=== PATIENT | female | born 1965 | race African-American/Black ===

== ENCOUNTER 2018-06-20 00:18 | Inpatient (IN) | payer BC, OTHER, SELFPAY ==
[2018-06-20 01:14] LABS: #Basophils 0.1 thou/uL (0.0-0.2); #Eosinphils 0.1 thou/uL (0.0-0.7); #Lymphocytes 2.9 thou/uL (1.20-3.40); %Basophils 1.2 % (0.0-1.0); %Eosinophils 0.6 % (0.0-10.0); %Lymphocytes 24.3 % (21.0-51.0); %Monocytes 7.9 % (0.0-10.0); Hemoglobin 14.4 g/dL (12.0-16.0); Mean Corpuscular HGB CONC 32.3 g/dL (32.0-36.0); Mean Corpuscular Hemoglobin 31.1 pg (27.0-31.0); Mean Platelet Volume 8.6 fL (7.4-10.4); Platelet Count 338 thou/uL (130-400); RBC Distribution Width 12.5 % (11.5-14.5); Red Blood Cell (RBC) Count 4.63 mill/uL (4.20-5.40); White Blood Cell (WBC) Count 12.1 thou/uL (4.8-10.8)
[2018-06-20 01:29] LABS: ALT (SGPT) 19 U/L (8-55); AST (SGOT) 18 U/L (5-34); Albumin 4.7 g/dL (3.5-5.0); Alkaline Phosphatase 89 U/L (40-150); Anion Gap 16 mmol/L (10-20); BUN (Urea Nitrogen) 14 mg/dL (9.8-20.1); Bilirubin, Total 0.3 mg/dL (0.2-1.2); Calc. Creatinine Clearance 0 mL/min (70-130); Calcium 10.2 mg/dL (7.8-10.44); Carbon Dioxide 25 mmol/L (22-29); Chloride 105 mmol/L (98-107); Estimated GFR-MDRD 87; Globulin 3.6 g/dL (2.4-3.5); Glucose 119 mg/dL (70-105); Lipase 23 U/L (8-78); Potassium 3.6 mmol/L (3.5-5.1); Protein, Total 8.3 g/dL (6.0-8.3); Sodium 142 mmol/L (136-145)
[2018-06-20 01:54] LABS: Bilirubin Negative (Negative); Blood, Urine Trace (Negative); Glucose, Urine (Dipstick) Negative (Negative); Leukocyte Negative (Negative); Nitrite Negative (Negative); Protein, Urine (Dipstick) Trace mg/dL (Neg-Trace); Urobilinogen 0.2 mg/dL (0.2-1.0)
[2018-06-20 01:59] LABS: Clarity Clear (Clear)
[2018-06-20 02:01] LABS: Bacteria/HPF None Seen HPF (None Seen); Hyaline Casts/LPF NONE SEEN LPF (0-3 Hyaline); RBC/HPF 0-3 HPF (0-3); Squamous Epithelial 0-3 HPF (0-3)
[2018-06-20] MEDS ORDERED: Ondansetron PF 4 MG/2 ML Vial ONE (02:39)
[2018-06-20] MEDS ORDERED: Morphine 4 MG/ML VIAL ONE (02:39)
[2018-06-20] MEDS ORDERED: MEROPENEM 1 GM/50 ML 1 GM in Premix Bag 1 BAG IVPB SCH (02:45)
--- NOTE | 2018-06-20 02:50 | PDOC.FPRHP ---
- History of Present Illness Chief Complaint: abdominal pain History of Present Illness: This is a 53 yo AA F here for CC of abdominal pain. The patient reports that the abdominal pain started Tuesday night around 2300. Patient states the pain has gotten progressively worse. Patient endorses nausea, vomiting, and diarrhea. Patient states her diarrhea has been loose-watery, non-bloody. Patient states she noticed blood on her toilet paper but not in her stool. Patient states she has vomited several times. She has had decreased PO intake due to nausea and vomiting. She endorses abdominal pain that is worse laying down. Described as sharp and all over, non radiating. Patient states sitting up or on her side helps the pain. Patient endorses having cough and congestion over the past week. Denies sick contacts or anyone with similar symptoms. Patient notes she has had cryptosporidium and campylobacter in the past. Denies recent abx use. Patient tried tylenol for pain with no relief at home. Patient had colonoscopy at age 49 that was normal. - Allergies/Adverse Reactions Allergies Allergy/AdvReac Type Severity Reaction Status Date / Time No Known Allergies Allergy Verified 06/20/18 04:00 - Home Medications Medication Instructions Recorded Confirmed Type Albuterol Sulfate [Proair HFA] 2 puff INH Q4HR PRN #0 01/25/17 06/20/18 Rx Mirtazapine 45 mg PO HS #30 tablet 01/26/17 06/20/18 Rx - History PMHx: asthma, depression PSHx: tubal ligation FHx: non contributory Social: tobacco- 5 pack year hx; occasional alcohol use; marijuana use, no other ilicit substances - Review of Systems General: denies: fever/chills, weight/appetite/sleep changes, night sweats, fatigue Eyes: denies: eye pain, vision changes ENT: reports: nasal congestion, rhinorrhea Respiratory: reports: cough. denies: congestion, shortness of breath Cardiovascular: denies: chest pain, palpitation, edema Gastrointestinal: reports: nausea, vomiting, diarrhea, abdominal pain. denies: constipation Genitourinary: denies: incontinence, dysuria, polyuria Skin: denies: rashes, lesions, jaundice Musculoskeletal: denies: pain, tenderness, stiffness, swelling Psychological: reports: depression - Vital signs BP: 173/95 HR: 71 RR: 18 Tmax: 98.6 Pox: 98% on RA Wt: 68kg - Physical Exam Constitutional: awake, alert and oriented, well developed -Constitutional: patient writhing in bed, acute distress due to pain HEENT: normocephalic and atraumatic, PERRLA, EOMI, grossly normal vision, grossly normal hearing -HEENT: MM dry Neck: supple, FROM, trachea midline Chest: no-tender to palpation, no lesions Heart: RRR, normal S1/S2, no murmurs/rubs/gallops, pulses present Lungs: CTAB, no respiratory distress, good air movement, no wheezing Abdomen: soft, bowel sounds present -Abdomen: TTP diffusely Musculoskeletal: normal structure, normal tone, ROM grossly normal Neurological: no focal deficit Skin: no rash/lesions -Psychiatric: tearful on exam FMR H&P: Results - Labs Result Diagrams: 06/20/18 00:54 06/20/18 00:54 Lab results: WBC 12.1 thou/uL (4.8-10.8) H 06/20/18 00:54 Hgb 14.4 g/dL (12.0-16.0) 06/20/18 00:54 Hct 44.5 % (36.0-47.0) 06/20/18 00:54 MCV 96.0 fL (78.0-98.0) 06/20/18 00:54 Plt Count 338 thou/uL (130-400) 06/20/18 00:54 Neutrophils % 66.0 % (42.0-75.0) 06/20/18 00:54 Sodium 142 mmol/L (136-145) 06/20/18 00:54 Potassium 3.6 mmol/L (3.5-5.1) 06/20/18 00:54 Chloride 105 mmol/L (98-107) 06/20/18 00:54 Carbon Dioxide 25 mmol/L (22-29) 06/20/18 00:54 BUN 14 mg/dL (9.8-20.1) 06/20/18 00:54 Creatinine 0.83 mg/dL (0.6-1.1) 06/20/18 00:54 Glucose 119 mg/dL (70-105) H 06/20/18 00:54 Calcium 10.2 mg/dL (7.8-10.44) 06/20/18 00:54 Total Bilirubin 0.3 mg/dL (0.2-1.2) 06/20/18 00:54 AST 18 U/L (5-34) 06/20/18 00:54 ALT 19 U/L (8-55) 06/20/18 00:54 Alkaline Phosphatase 89 U/L (40-150) 06/20/18 00:54 Serum Total Protein 8.3 g/dL (6.0-8.3) 06/20/18 00:54 Albumin 4.7 g/dL (3.5-5.0) 06/20/18 00:54 Lipase 23 U/L (8-78) 06/20/18 00:54 Urine Ketones Negative mg/dL (Negative) 06/20/18 00:33 Urine Blood Trace (Negative) H 06/20/18 00:33 Urine Nitrite Negative (Negative) 06/20/18 00:33 Ur Leukocyte Esterase Negative (Negative) 06/20/18 00:33 Urine RBC 0-3 HPF (0-3) 06/20/18 00:33 Urine WBC 4-6 HPF (0-3) H 06/20/18 00:33 Ur Squamous Epith Cells 0-3 HPF (0-3) 06/20/18 00:33 Urine Bacteria None Seen HPF (None Seen) 06/20/18 00:33 - Radiology Interpretation CT scan - abdomen Status: report reviewed by me (CT abdomen/pelvis w/ co - ischemic vs infectious colitis) FMR H&P: A/P - Problem List (1) Colitis Current Visit: Yes Status: Acute Code(s): K52.9 - NONINFECTIVE GASTROENTERITIS AND COLITIS, UNSPECIFIED (2) Depression Current Visit: No Status: Chronic Code(s): F32.9 - MAJOR DEPRESSIVE DISORDER , SINGLE EPISODE, UNSPECIFIED Qualifiers: Depression Type: major depressive disorder Comment: (3) Marijuana abuse Current Visit: Yes Status: Acute Code(s): F12.10 - CANNABIS ABUSE, UNCOMPLICATED (4) Tobacco abuse Current Visit: Yes Status: Acute Code(s): Z72.0 - TOBACCO USE - Plan Abdominal pain 2/2 Infectious vs Inflammatory Colitis - stool studies pending - ESR and CRP to look for inflammatory cause - Will give tylenol for mod pain; morphine for severe pain - zofran for nausea - LR @ 100ml/hr - Full liquid diet and advance as tolerated - AM BMP, CBC Leukocytosis - likely 2/2 to above - will monitor with AM CBC Hx of marijuana use - aware - UDS pending Current Tobacco use - aware, smoking cessation counseling - nicotine patch PRN DISPO: admit for observation CODE: FULL VTE: SCDs GI: protonix FMR H&P: Upper Level - Pertinent history Marla Stewart is a 53 year old female who presents to the ED with 2 day history of severe abdominal pain, nausea, vomiting, and diarrhea. She reports decreased PO intake. She has been afebrile. No recent travel or antibiotic use. No sick contacts Of note she was hospitalized in December 2016 for Campylobacter enteritis. She also tested positive for Cryptosporidium antigen. She tested negative for C. diff. CT scan performed at the time showed diffuse large bowel edema. She states that she had a normal colonoscopy 4 years ago. - Pertinent findings Vitals: BP: 142/76 P: 52 RR: 18 O2: 99% on RA Exam General: Pt is tearful and appears extremely uncomfortable. Abdomen: Normoactive bowel sounds. Soft, diffusely tender to palpation; no rebound or guarding. - Plan Date/Time: 06/20/18 6936 I, Yessi Yu, have evaluated this patient and agree with findings/plan as outlined by information technology intern resident. Pertinent changes/additions are listed here. Acute colitis - infectious vs. inflammatory etiology. - will obtain stool studies - will add on ESR and CRP to check for inflammatory causes. - will add on Morphine for severe pain. - IV fluids and antiemetics. - clear liquid diet; advance as tolerated. Tobacco abuse - transdermal nicotine History of drug abuse Attending Addendum - Attending Addendum Date/Time: 06/20/18 1050 I personally evaluated the patient and discussed the management with Dr. Hughes/ Gigi. I agree with the History, Examination, Assessment and Plan documented above with any addition or exceptions noted below. Patient here for presumed colitis. Will give clear liquids, IV fluid support, pain control, and Rocephin/Flagyl for treatment. Advance diet as tolerated. Labs reassuring. Do not have high suspicion for ischemic colitis at this time due to the distribution of her CT findings. Stool studies pending.
[2018-06-20] MEDS ORDERED: Ondansetron PF 4 MG/2 ML Vial IVP PRN (03:39)
[2018-06-20] MEDS ORDERED: Ondansetron ODT 4 MG TAB PO PRN (03:39)
[2018-06-20] MEDS ORDERED: Acetaminophen 325 MG TAB PO PRN (03:39)
[2018-06-20 03:50] VITALS: BMI 24.3
[2018-06-20 06:43] LABS: Cocaine Metabolite Screen Detected (NotDetected); Medtox Reader # READER 1; Phencyclidine (PCP) Not Detected (NotDetected); THC/Cannabinoid Screen Detected (NotDetected)
[2018-06-20 06:44] LABS: Amphetamine Not Detected (NotDetected); Barbiturates Screen Not Detected (NotDetected); Benzodiazepine Screen Not Detected (NotDetected); Medtox Control Line Valid? VALID (VALID); Methadone Not Detected (NotDetected); Methamphetamine Not Detected (NotDetected); Opiate Screen Detected (NotDetected); Oxycodone Screen Not Detected (NotDetected); Tricyclic Screen Not Detected (NotDetected)
--- NOTE | 2018-06-20 08:03 | CT ---
PRELIMINARY REPORT/[facility]/EMERGENT[facility] AFTER-HOURS PROCEDURE CT Abdomen and Pelvis With Intravenous Contrast EXAM DATE/TIME: 06/20/2018 1:16 AM CLINICAL HISTORY: 53 years old, female; Pain; Abdominal pain; Localized; Lower; Patient HX: 53 yo f presents to ed with abdominal pain. PT reports abdominal pain that started tuesday night around 11 pm, with associated na usea, vomiting, diarrhea, and hematochezia. PT reports HX of c-diff. TECHNIQUE: Axial computed tomography images of the abdomen and pelvis with intravenous contrast. Coronal reforma tted images were created and reviewed. COMPARISON: No relevant prior studies available. FINDINGS: Lower thorax: No acute findings. ABDOMEN: Liver: Normal. Gallbladder and bile ducts: Normal. Pancreas: Normal. Spleen: Normal. Adrenals: Normal. Kidneys and ureters: Normal. Stomach and bowel: Moderate wall thickening of the descending colon and proximal sigmoid colon, with minimal adjacent associated fat stranding, most compatible with infectious/inflammatory colitis. Appendix: Appendix is normal. PELVIS: Bladder: Unremarkable as visualized. Reproductive: Unremarkable as visualized. ABDOMEN and PELVIS: Intraperitoneal space: Normal. No free air. No significant fluid collection. Bones/joints: No acute abnormality. Soft tissues: Small fat containing umbilical hernia. Vasculature: Phleboliths within the pelvis. Lymph nodes: Normal. No enlarged lymph nodes. IMPRESSION: Moderate wall thickening of the descending colon and proximal sigmoid colon, with minimal adjacent as sociated fat stranding, most compatible with infectious/inflammatory colitis. Thank you for allowing us to participate in the care of your patient. Dictated and Authenticated by: Torrey Cochran MD 06/20/2018 1:48 AM Central Time ([place] & [place]) FINAL REPORT CT ABDOMEN AND PELVIS WITH IV CONTRAST: I agree with the preliminary report given by Dr. Cochran from [facility]. POS: [facility]
[2018-06-20] MEDS: Lactated Ringer's 1,000 ML IV SCH ×2 (08:10→16:16)
[2018-06-20] MEDS: cefTRIAXone\\ROCEPHIN 1 GM in Sodium Chloride 0.9% 100 ML IVPB SCH (08:13)
[2018-06-20] MEDS: Morphine 2 MG/ML SYRINGE SLOW IVP PRN ×2 (08:15→13:54)
[2018-06-20] MEDS: Nicotine 14 MG PATCH TD PRN (08:18)
[2018-06-20] MEDS ORDERED: Dicyclomine 10 MG/5 ML UDCUP PO SCH (09:00)
[2018-06-20] MEDS: Dicyclomine 10 MG/5 ML UDCUP PO PRN ×3 (09:32→18:35)
[2018-06-20] MEDS ORDERED: ISOVUE-370 76%-LOCM 1 ML ONE (11:41)
[2018-06-20] MEDS: metroNIDAZOLE 500 MG in Premix Bag 1 BAG IVPB SCH ×2 (13:54→22:09)
[2018-06-21] MEDS: Dicyclomine 10 MG/5 ML UDCUP PO PRN (03:49)
[2018-06-21 04:36] LABS: #Basophils 0.1 thou/uL (0.0-0.2); #Eosinphils 0.2 thou/uL (0.0-0.7); #Lymphocytes 3.2 thou/uL (1.20-3.40); #Monocytes 0.7 thou/uL (0.11-0.59); #Neutrophils 3.7 thou/uL (1.40-6.50); %Basophils 1.4 % (0.0-1.0); %Eosinophils 2.1 % (0.0-10.0); %Lymphocytes 40.7 % (21.0-51.0); %Monocytes 8.6 % (0.0-10.0); %Neutrophils 47.3 % (42.0-75.0); Hemoglobin 11.5 g/dL (12.0-16.0); Mean Corpuscular HGB CONC 31.8 g/dL (32.0-36.0); Mean Corpuscular Hemoglobin 30.8 pg (27.0-31.0); Mean Corpuscular Volume 96.8 fL (78.0-98.0); Mean Platelet Volume 8.2 fL (7.4-10.4); Platelet Count 292 thou/uL (130-400); RBC Distribution Width 12.3 % (11.5-14.5); Red Blood Cell (RBC) Count 3.74 mill/uL (4.20-5.40); White Blood Cell (WBC) Count 7.8 thou/uL (4.8-10.8)
[2018-06-21 05:13] LABS: Anion Gap 10 mmol/L (10-20); BUN (Urea Nitrogen) 10 mg/dL (9.8-20.1); Calc. Creatinine Clearance 93 mL/min (70-130); Calcium 8.6 mg/dL (7.8-10.44); Carbon Dioxide 26 mmol/L (22-29); Chloride 108 mmol/L (98-107); Estimated GFR-MDRD Greater than 90; Glucose 86 mg/dL (70-105); Potassium 3.5 mmol/L (3.5-5.1); Sodium 140 mmol/L (136-145)
[2018-06-21] MEDS: metroNIDAZOLE 500 MG in Premix Bag 1 BAG IVPB SCH (05:46)
--- NOTE | 2018-06-21 06:08 | PDOC.FM ---
- Subjective Subjective: Ms. Stewart reports her abdominal discomfort has improved. Bentyl helps. Pt has not had BM since hospitalized. Last BM Tuesday. Tolerating full liquids well. Denies nausea, just reports decreased appetite. Requests Boost to improve her appetite. - Objective MAR Reviewed: Yes Vital Signs & Weight: Vital Signs (12 hours) Temp Pulse Resp BP Pulse Ox 06/21/18 03:50 98.4 F 55 L 16 132/71 98 06/20/18 19:11 98.4 F 58 L 18 121/72 96 Weight Admit Weight 62.369 kg Weight 62.369 kg I&O: 06/19/18 06/20/18 06/21/18 06:59 06:59 06:59 Intake Total 3400 Balance 3400 Result Diagrams: 06/21/18 03:52 06/21/18 03:52 <Kristina Cintron - Last Filed: 06/21/18 08:53> - Objective Vital Signs & Weight: Vital Signs (12 hours) Temp Pulse Resp BP Pulse Ox 06/21/18 07:00 98.4 F 55 L 16 141/73 H 98 06/21/18 03:50 98.4 F 55 L 16 132/71 98 Weight Admit Weight 62.369 kg Weight 62.369 kg I&O: 06/20/18 06/21/18 06/22/18 06:59 06:59 06:59 Intake Total 3400 Balance 3400 Result Diagrams: 06/21/18 03:52 06/21/18 03:52 <Dae Campbell - Last Filed: 06/21/18 11:52> Phys Exam - Physical Examination Constitutional: NAD HEENT: moist MMs Respiratory: no wheezing, no rhonchi, clear to auscultation bilateral Cardiovascular: RRR, no significant murmur Gastrointestinal: soft, no distention, positive bowel sounds minimal TTP Musculoskeletal: no edema Neurological: non-focal Psychiatric: normal affect Skin: normal turgor, cap refill <2 seconds <Kristina Cintron - Last Filed: 06/21/18 08:53> Dx/Plan (1) Infectious colitis Code(s): A09 - INFECTIOUS GASTROENTERITIS AND COLITIS, UNSPECIFIED Status: Acute (2) Abdominal pain Code(s): R10.9 - UNSPECIFIED ABDOMINAL PAIN Status: Acute Qualifiers: Abdominal location: generalized Qualified Code(s): R10.84 - Generalized abdominal pain (3) Leukocytosis Code(s): D72.829 - ELEVATED WHITE BLOOD CELL COUNT, UNSPECIFIED Status: Resolved (4) Marijuana abuse Code(s): F12.10 - CANNABIS ABUSE, UNCOMPLICATED Status: Chronic (5) Tobacco abuse Code(s): Z72.0 - TOBACCO USE Status: Chronic (6) Cocaine abuse Code(s): F14.10 - COCAINE ABUSE, UNCOMPLICATED Status: Acute - Plan Plan: Abdominal pain 2/2 Likely Infectious Colitis - stool studies pending, uncollected still - ESR and CRP negative - Bentyl and tylenol prn pain. Discontinue morphine. - zofran for nausea - LR @ 100ml/hr, will d/c as pt tolerating PO intake well - Full liquid diet and advance as tolerated Leukocytosis, resolved - likely 2/2 to above - could have normalized due to dilution as all cells lines dropped in repeat CBC this am Hx of drug abuse - UDS positive for cocaine, cannabinoid, opioid Current Tobacco use - aware, smoking cessation counseling - nicotine patch PRN CODE: FULL VTE: SCDs GI: protonix Dispo: likely discharge today <Kristina Cintron - Last Filed: 06/21/18 08:53> (1) Colitis Code(s): K52.9 - NONINFECTIVE GASTROENTERITIS AND COLITIS, UNSPECIFIED Status : Deleted (2) Depression Code(s): F32.9 - MAJOR DEPRESSIVE DISORDER, SINGLE EPISODE, UNSPECIFIED Status : Chronic Qualifiers: Depression Type: major depressive disorder (3) Marijuana abuse Code(s): F12.10 - CANNABIS ABUSE, UNCOMPLICATED Status: Chronic (4) Tobacco abuse Code(s): Z72.0 - TOBACCO USE Status: Chronic <Dae Campbell - Last Filed: 06/21/18 11:52> Attending Addendum - Attending Addendum Date/Time: 06/21/18 1151 I personally evaluated the patient and discussed the management with Dr. Cintron. I agree with the History, Examination, Assessment and Plan documented above with any addition or exceptions noted below. Patient feeling improved today. Abdominal pain improved from colitis and she is tolerating diet well. Discharge home with outpatient follow up. <Dae Campbell - Last Filed: 06/21/18 11:52>
[2018-06-21] MEDS: cefTRIAXone\\ROCEPHIN 1 GM in Sodium Chloride 0.9% 100 ML IVPB SCH (08:09)
[2018-06-21] MEDS: Lactated Ringer's 1,000 ML IV SCH (08:15)
[2018-06-21] MEDS: Nicotine 14 MG PATCH TD PRN (08:19)
[2018-06-21 14:05] VITALS: BP 136/72; TEMP 97.4
[2018-06-21] MEDS ORDERED: Mirtazapine 15 MG TAB PO SCH (21:00)
== END 2018-06-21 14:06 | disposition home or self-care (01) | DRG 392 ==
LOC: ERS 00:18 → T4-A 03:30
PROVIDERS: ADMIT Family Medicine; ATTEND Family Medicine
DX: A09 Infectious gastroenteritis and colitis, unspecified (principal); F12.10 Cannabis abuse, uncomplicated; F17.210 Nicotine dependence, cigarettes, uncomplicated; F14.10 Cocaine abuse, uncomplicated; F32.9 Major depressive disorder, single episode, unspecified; J45.909 Unspecified asthma, uncomplicated
CPT/HCPCS: 36415; 74177; 80048; 80053; 80306; 81003; 81015; 82274; 83630; 83690; 84145; 85025; 85652; 86140; 87015; 87045; 87046; 87206; 87324; 87328; 87329; 87449; 87899; 90471; 90686; 90732; 96361; 96365; 96372; 96375; G0008; G0009; J0696; J2185; J2270; J2405; J7050

== ENCOUNTER 2020-06-19 08:34 | Emergency (ER) | payer BC, SELFPAY ==
[2020-06-19] MEDS ORDERED: Morphine 4 MG/ML VIAL ONE (09:05)
[2020-06-19] MEDS ORDERED: Ondansetron PF 4 MG/2 ML Vial ONE ×2 (09:05→09:06)
[2020-06-19 09:19] LABS: Bilirubin Negative (Negative); Blood, Urine Negative (Negative); Clarity Clear (Clear); Glucose, Urine (Dipstick) Normal (Negative); Ketone, Urine Negative (Negative); Leukocyte Negative Leu/uL (Negative); Nitrite Negative (Negative); Protein, Urine (Dipstick) 10 mg/dL (Neg-Trace); Specific Gravity, Urine 1.023 (1.002-1.036); Urobilinogen Normal mg/dL (Less than 2); pH, Urine 5.5 (5.0-9.0)
[2020-06-19 09:26] LABS: Hemoglobin 13.2 g/dL (12.0-16.0); Mean Corpuscular HGB CONC 34.2 g/dL (32.0-36.0); Mean Corpuscular Hemoglobin 32.5 pg (27.0-31.0); Mean Corpuscular Volume 95.2 fL (78.0-98.0); RBC Distribution Width 12.9 % (11.5-14.5); Red Blood Cell (RBC) Count 4.07 mill/uL (4.20-5.40); White Blood Cell (WBC) Count 11.3 thou/uL (4.8-10.8)
[2020-06-19 09:32] LABS: ALT (SGPT) 11 U/L (8-55); AST (SGOT) 14 U/L (5-34); Alkaline Phosphatase 97 U/L (40-110); Anion Gap 15 mmol/L (10-20); BUN (Urea Nitrogen) 10 mg/dL (9.8-20.1); Bilirubin, Total Less than 0.2 mg/dL (0.2-1.2); Calc. Creatinine Clearance 0 mL/min (70-130); Calcium 8.8 mg/dL (7.8-10.44); Carbon Dioxide 21 mmol/L (22-29); Chloride 111 mmol/L (98-107); Estimated GFR-MDRD Greater than 90; Globulin 3.2 g/dL (2.4-3.5); Glucose 106 mg/dL (70-105); Lipase 36 U/L (8-78); Potassium 3.5 mmol/L (3.5-5.1); Protein, Total 7.2 g/dL (6.0-8.3); Sodium 143 mmol/L (136-145)
[2020-06-19 09:36] LABS: #Basophils 0.1 thou/uL (0.0-0.2); #Eosinphils 0.1 thou/uL (0.0-0.7); #Lymphocytes 2.5 thou/uL (1.20-3.40); #Monocytes 0.7 thou/uL (0.11-0.59); #Neutrophils 7.9 thou/uL (1.40-6.50); %Basophils 0.5 % (0.0-1.0); %Lymphocytes 22.1 % (21.0-51.0); %Monocytes 6.1 % (0.0-10.0); %Neutrophils 70.3 % (42.0-75.0); Mean Platelet Volume 8.3 fL (7.4-10.4); Platelet Count 239 thou/uL (130-400)
--- NOTE | 2020-06-19 12:15 | CT ---
CT ABDOMEN AND PELVIS WITH IV CONTRAST: Oral contrast was administered. INDICATION: Abdominal pain. History of colitis. Comparison made to CT abdomen and pelvis dated 06/20/2018. That exam revealed diffuse colonic mural t hickening consistent with colitis. FINDINGS: Lung bases clear. Review of the liver today reveals evidence of diffuse periportal edema, which is a new finding when c ompared to the prior study. Small, 7.0 mm, low density focus in the superior right lobe of liver is stable. Extrahepatic bile duct appears within normal range. The gallbladder is minimally distended and unrema rkable by CT. Gallstones may not be apparent on CT. The pancreas is unremarkable. Slight prominence of the pancreatic duct is stable from the prior exam. Spleen unremarkable. Stomach and duodenum unremarkable. Adrenal glands normal. Kidneys show no hydronephrosis or mass lesion. There is evidence of a small ca lcification in the lower pole collecting structures of the right kidney measuring in the 3.0 mm range . Small bowel loops appear normal. Appendix is normal. Review of the colon today shows moderate volume stool throughout the colon. There is mural thickening again noted, primarily involving the left colon on today's exam. Aorta unremarkable. No adenopathy. Images through the pelvis show unremarkable uterus and adnexa. Urinary bladder unremarkable. Osseous structures unremarkable. IMPRESSION: 1. Moderate volume stool throughout the colon. Mural thickening most prominent in the left colon tod ay suggesting colitis as per history. 2. New periportal edema seen in the liver today. This is a nonspecific finding. 3. Small calculus lower pole collecting structures right kidney. POS: [facility]
== END 2020-06-19 11:54 | disposition home or self-care (01) ==
LOC: ERS 08:34
DX: K52.9 Noninfective gastroenteritis and colitis, unspecified (principal); F32.9 Major depressive disorder, single episode, unspecified; J45.909 Unspecified asthma, uncomplicated
CPT/HCPCS: 36415; 74177; 80053; 81003; 83690; 85025; 93005; 96374; 96375; J2270; J2405

== ENCOUNTER 2023-09-21 04:30 | Emergency (ER) | payer OTHER, SELFPAY ==
[2023-09-21] MEDS ORDERED: Ketorolac Tromethamine 30 MG (1 mL) VIAL ONE ×2 (04:38→06:34)
[2023-09-21] MEDS ORDERED: Ondansetron PF 4 MG/2 ML Vial ONE ×3 (04:38→09:47)
[2023-09-21 04:58] LABS: #Basophils 0.1 thou/uL (0.0-0.2); #Eosinphils 0.1 thou/uL (0.0-0.7); #Monocytes 0.8 thou/uL (0.11-0.59); %Basophils 0.4 % (0.0-1.0); %Lymphocytes 27.2 % (21.0-51.0); %Monocytes 5.4 % (0.0-10.0); %Neutrophils 65.7 % (42.0-75.0); Hematocrit 38.9 % (36.0-47.0); Mean Corpuscular HGB CONC 33.4 g/dL (32.0-36.0); Mean Corpuscular Volume 92.6 fl (78.0-98.0); Mean Platelet Volume 10.3 fL (7.4-10.4); Platelet Count 300 10x3/uL (130-400); RBC Distribution Width 13.7 % (11.5-14.5); White Blood Cell (WBC) Count 13.8 10x3/uL (4.8-10.8)
[2023-09-21 05:19] LABS: ALT (SGPT) 9 U/L (8-55); AST (SGOT) 11 U/L (5-34); Albumin 4.3 g/dL (3.5-5.0); Alkaline Phosphatase 98 U/L (40-110); Anion Gap 15 mmol/L (10-20); BUN (Urea Nitrogen) 12 mg/dL (9.8-20.1); Bilirubin, Total 0.3 mg/dL (0.2-1.2); Calc. Creatinine Clearance 0 mL/min (70-130); Calcium 9.1 mg/dL (7.8-10.44); Carbon Dioxide 20 mmol/L (22-29); Chloride 109 mmol/L (98-107); Estimated GFR 95; Glucose 141 mg/dL (70-105); Lipase 15 U/L (8-78); Potassium 3.7 mmol/L (3.5-5.1); Protein, Total 7.3 g/dL (6.0-8.3); Sodium 140 mmol/L (136-145)
[2023-09-21] MEDS ORDERED: fentaNYL 50 mcg/mL 1 mL Vial ONE (06:49)
[2023-09-21] MEDS ORDERED: HYDROmorphone 0.5 MG/0.5 ML SYRINGE ONE ×2 (07:42→09:43)
[2023-09-21] MEDS ORDERED: Tamsulosin HCl 0.4 MG CAP PO SCH (09:15)
[2023-09-21] MEDS ORDERED: Tamsulosin HCl 0.4 MG CAP ONE (09:43)
[2023-09-21 10:53] LABS: Bacteria/HPF None Seen HPF (None Seen); Bilirubin Negative (Negative); Blood, Urine Negative (Negative); CAUTI Indications for Culture Pelvic or flank pain; Clarity Clear (Clear); Glucose, Urine (Dipstick) Normal (Negative); Ketone, Urine Negative (Negative); Leukocyte Negative Leu/uL (Negative); Nitrite Negative (Negative); Protein, Urine (Dipstick) Negative (Neg-Trace); RBC/HPF 0-3 HPF (0-3); Specific Gravity, Urine 1.017 (1.002-1.036); Squamous Epithelial 0-3 HPF (0-3); Urobilinogen Normal mg/dL (Less than 2); WBC/HPF 0-3 HPF (0-3)
[2023-09-21 10:56] LABS: Urine Culture Reflex No No
== END 2023-09-21 11:48 | disposition home or self-care (01) ==
LOC: ERS 04:30
DX: N20.0 Calculus of kidney (principal); J45.909 Unspecified asthma, uncomplicated
CPT/HCPCS: 36415; 74176; 80053; 81001; 83690; 85025; 96361; 96374; 96375; 96376; J1170; J1885; J2405; J3010